=== PATIENT | male | born 1975 | race Caucasian/White ===

== ENCOUNTER 2016-11-26 19:01 | Emergency (ER) | payer MEDICAID | END 2016-11-26 19:55 | disposition home or self-care (01) | LOC: D.ER 19:01 | DX: L02.414 Cutaneous abscess of left upper limb (principal) ==

== ENCOUNTER 2017-07-11 12:11 | Emergency (ER) | payer MEDICAID | END 2017-07-11 13:48 | disposition home or self-care (01) | LOC: D.ER 12:11 | DX: J18.9 Pneumonia, unspecified organism (principal); J45.909 Unspecified asthma, uncomplicated; F17.200 Nicotine dependence, unspecified, uncomplicated ==

== ENCOUNTER 2017-09-12 05:06 | Emergency (ER) | payer MEDICAID ==
[2017-09-12 05:48] LABS: UDS - AMPHET POSITIVE QUAL (NEGATIVE); UDS - BARB NEGATIVE QUAL (NEGATIVE); UDS - BENZO NEGATIVE QUAL (NEGATIVE); UDS - COCAINE NEGATIVE QUAL (NEGATIVE); UDS - OPIATE NEGATIVE QUAL (NEGATIVE); UDS - PCP NEGATIVE QUAL (NEGATIVE); UDS - THC POSITIVE QUAL (NEGATIVE)
== END 2017-09-12 06:21 | disposition home or self-care (01) ==
LOC: D.ER 05:06
PROVIDERS: Family Medicine
DX: F15.10 Other stimulant abuse, uncomplicated (principal)

== ENCOUNTER 2018-02-03 00:43 | Inpatient (IN) | payer MEDICAID ==
[~2018-02-03] VITALS: Ht 185.4 cm; Wt 63.5 kg
--- NOTE | ~2018-02-03 | MORECARE ---
CASE MANAGEMENT DISCHARGE SUMMARY PATIENT: ELEONORA DE LEÓN UNIT: [id number] ADM DATE: 02/03/18 AGE: 42 : 71 SEX: M ROOM/BED: D.2222 AUTHOR: SASHADOC PHYSICIAN: REFERRING PHYSICIAN: DANNY ROWLAND MD DATE OF SERVICE: 02/07/18 Discharge Plan Patient Name: ELEONORA DE LEÓN Facility: [facility]:[place] : 1975 Planned Disposition: Home or Self Care Anticipated Discharge Date: 02/05/18 Discharge Date: 02/05/2018 Expected LOS: 2 Initial Reviewer: [email or web address] Initial Review Date: 02/03/2018 Generated: 02/07/18 5:35 pm Comments DCP- Discharge Planning Updated by [email or web address]: Doris Reed on 02/05/18 6:[address] LATE ENTRY 1730 PATIENT REPORTS HE IS GOING TO A PLACE ON [facility]. HE ALSO STATES HE HAS TRANSPORTATION. HIS TRANSPORTATION IS REPORTEDLY ON THE WAY. NO OTHER NEEDS VOICED. DCP- Discharge Planning Updated by [email or web address]: Karina Gutierrez on 02/03/18 1:[address] Patient Name: ELEONORA DE LEÓN Admission Status: ER Accout number: [id number] Admission Date: 02-03-2018 : 1975 Admission Diagnosis: Attending: DANNY ROWLAND Current LOS: 1 Anticipated DC Date: Planned Disposition: Primary Insurance: UNINSURED DISCOUNT PLAN Discharge Planning Comments: Met with patient to discuss discharge planning. He is laying on his side and does not open his eyes. I asked if he was currently homeless and he says yes. He states he was at [facility] for 2 weeks, states he will not go back. I provided him a list of homeless shelters. He states he does not have any family here. He states "I'm not in this right now." I informed him I will speak with him tomorrow and to let us know if we can help. CM will continue to follow and assist with discharge planning/needs. Office Auditor: Karina Gutierrez DCPIA - Discharge Planning Initial Assessment Updated by [email or web address]: Karina Gutierrez on 02/03/18 2:15 pm * Is the patient Alert and Oriented? Yes * PCP None * Pharmacy None * Preadmission Environment Homeless * ADLs Independent * Equipment None * List name and contact numbers for known caregivers / representatives who currently or will assist patient after discharge: None * Community resources currently utilized None Last DP export: 02/05/18 6:29 Patient Name: ELEONORA DE LEÓN Page [id number] at 1635 All edits/amendments must be made on the electronic document DICTATION DATE: 02/07/18 1634 HIGH LIFT OPERATOR: TERRIE 02/07/18 1634 RPT#: [id number] DC DATE:02/05/18 STATUS: DIS IN [facility] [address] [place] [address] END OF REPORT
--- NOTE | ~2018-02-03 | MORECARE ---
CASE MANAGEMENT DISCHARGE SUMMARY PATIENT: ELEONORA DE LEÓN UNIT: [id number] ADM DATE: 02/03/18 AGE: 42 : 71 SEX: M ROOM/BED: D.2222 AUTHOR: SASHADOC PHYSICIAN: REFERRING PHYSICIAN: DANNY ROWLAND MD DATE OF SERVICE: 02/05/18 Discharge Plan Patient Name: ELEONORA DE LEÓN Facility: [facility]:[place] : 1975 Planned Disposition: Home or Self Care Anticipated Discharge Date: 02/05/18 Discharge Date: 02/05/2018 Expected LOS: 2 Initial Reviewer: [email or web address] Initial Review Date: 02/03/2018 Generated: 02/05/18 8:29 pm Comments DCP- Discharge Planning Updated by [email or web address]: Doris Reed on 02/05/18 6:[address] LATE ENTRY 1730 PATIENT REPORTS HE IS GOING TO A PLACE ON [facility]. HE ALSO STATES HE HAS TRANSPORTATION. HIS TRANSPORTATION IS REPORTEDLY ON THE WAY. NO OTHER NEEDS VOICED. DCP- Discharge Planning Updated by [email or web address]: Karina Gutierrez on 02/03/18 1:[address] Patient Name: ELEONORA DE LEÓN Admission Status: ER Accout number: [id number] Admission Date: 02-03-2018 : 1975 Admission Diagnosis: Attending: DANNY ROWLAND Current LOS: 1 Anticipated DC Date: Planned Disposition: Primary Insurance: UNINSURED DISCOUNT PLAN Discharge Planning Comments: Met with patient to discuss discharge planning. He is laying on his side and does not open his eyes. I asked if he was currently homeless and he says yes. He states he was at [facility] for 2 weeks, states he will not go back. I provided him a list of homeless shelters. He states he does not have any family here. He states "I'm not in this right now." I informed him I will speak with him tomorrow and to let us know if we can help. CM will continue to follow and assist with discharge planning/needs. Sheriffs Detective: Karina Gutierrez DCPIA - Discharge Planning Initial Assessment Updated by [email or web address]: Karina Gutierrez on 02/03/18 2:15 pm * Is the patient Alert and Oriented? Yes * PCP None * Pharmacy None * Preadmission Environment Homeless * ADLs Independent * Equipment None * List name and contact numbers for known caregivers / representatives who currently or will assist patient after discharge: None * Community resources currently utilized None Last DP export: 02/05/18 6:23 Patient Name: ELEONORA DE LEÓN Page [id number] at 192 All edits/amendments must be made on the electronic document DICTATION DATE: 02/05/181928 PLANT PHYSIOLOGY TEACHER: TERRIE 02/05/181928 RPT#: [id number] DC DATE:02/05/18 STATUS: DIS IN [facility] [address] [place] [address] END OF REPORT
--- NOTE | ~2018-02-03 | MORECARE ---
CASE MANAGEMENT DISCHARGE SUMMARY PATIENT: ELEONORA DE LEÓN UNIT: [id number] ADM DATE: 02/03/18 AGE: 42 : 71 SEX: M ROOM/BED: D.2222 AUTHOR: SASHADOC PHYSICIAN: REFERRING PHYSICIAN: DANNY ROWLAND MD DATE OF SERVICE: 02/03/18 Discharge Plan Patient Name: ELEONORA DE LEÓN Facility: [facility]:[place] : 1975 Planned Disposition: Anticipated Discharge Date: Discharge Date: Expected LOS: Initial Reviewer: [email or web address] Initial Review Date: 02/03/2018 Generated: 02/03/18 3:23 pm Comments DCP- Discharge Planning Updated by [email or web address]: Karina Gutierrez on 02/03/18 1:[address] Patient Name: ELEONORA DE LEÓN Admission Status: ER Accout number: [id number] Admission Date: 02-03-2018 : 1975 Admission Diagnosis: Attending: DANNY ROWLAND Current LOS: 1 Anticipated DC Date: Planned Disposition: Primary Insurance: UNINSURED DISCOUNT PLAN Discharge Planning Comments: Met with patient to discuss discharge planning. He is laying on his side and does not open his eyes. I asked if he was currently homeless and he says yes. He states he was at [facility] for 2 weeks, states he will not go back. I provided him a list of homeless shelters. He states he does not have any family here. He states "I'm not in this right now." I informed him I will speak with him tomorrow and to let us know if we can help. CM will continue to follow and assist with discharge planning/needs. Chicken Hanger: Karina Gutierrez DCPIA - Discharge Planning Initial Assessment Updated by [email or web address]: Karina Gutierrez on 02/03/18 2:15 pm * Is the patient Alert and Oriented? Yes * PCP None * Pharmacy None * Preadmission Environment Homeless * ADLs Independent * Equipment None * List name and contact numbers for known caregivers / representatives who currently or will assist patient after discharge: None * Community resources currently utilized None Last DP export: 02/03/18 1:15 Patient Name: ELEONORA DE LEÓN Page 38021 at 1423 All edits/amendments must be made on the electronic document DICTATION DATE: 02/03/181421 DRUG REGULATORY AFFAIRS SPECIALIST: TERRIE 02/03/181421 RPT#: [id number] DC DATE: STATUS: ADM IN [facility] [address] [place] [address] END OF REPORT
--- NOTE | ~2018-02-03 | MORECARE ---
CASE MANAGEMENT DISCHARGE SUMMARY PATIENT: ELEONORA DE LEÓN UNIT: [id number] ADM DATE: 02/03/18 AGE: 42 : 71 SEX: M ROOM/BED: D.2222 AUTHOR: SASHADOC PHYSICIAN: REFERRING PHYSICIAN: DANNY ROWLAND MD DATE OF SERVICE: 02/05/18 Discharge Plan Patient Name: ELEONORA DE LEÓN Facility: [facility]:[place] : 1975 Planned Disposition: Home or Self Care Anticipated Discharge Date: 02/05/18 Discharge Date: 02/05/2018 Expected LOS: 2 Initial Reviewer: [email or web address] Initial Review Date: 02/03/2018 Generated: 02/05/18 8:23 pm Comments DCP- Discharge Planning Updated by [email or web address]: Karina Gutierrez on 02/03/18 1:[address] Patient Name: ELEONORA DE LEÓN Admission Status: ER Accout number: [id number] Admission Date: 02-03-2018 : 1975 Admission Diagnosis: Attending: DANNY ROWLAND Current LOS: 1 Anticipated DC Date: Planned Disposition: Primary Insurance: UNINSURED DISCOUNT PLAN Discharge Planning Comments: Met with patient to discuss discharge planning. He is laying on his side and does not open his eyes. I asked if he was currently homeless and he says yes. He states he was at [facility] for 2 weeks, states he will not go back. I provided him a list of homeless shelters. He states he does not have any family here. He states "I'm not in this right now." I informed him I will speak with him tomorrow and to let us know if we can help. CM will continue to follow and assist with discharge planning/needs. Temp Recruiter: Karina Gutierrez DCPIA - Discharge Planning Initial Assessment Updated by [email or web address]: Karina Gutierrez on 02/03/18 2:15 pm * Is the patient Alert and Oriented? Yes * PCP None * Pharmacy None * Preadmission Environment Homeless * ADLs Independent * Equipment None * List name and contact numbers for known caregivers / representatives who currently or will assist patient after discharge: None * Community resources currently utilized None Last DP export: 02/03/18 1:23 Patient Name: ELEONORA DE LEÓN Page 86944 at 1923 All edits/amendments must be made on the electronic document DICTATION DATE: 02/05/181921 COVER REMOVER: TERRIE 02/05/181921 RPT#: [id number] DC DATE:02/05/18 STATUS: DIS IN [facility] [address] [place] [address] END OF REPORT
--- NOTE | ~2018-02-03 | MORECARE ---
CASE MANAGEMENT DISCHARGE SUMMARY PATIENT: ELEONORA DE LEÓN UNIT: [id number] ADM DATE: 02/03/18 AGE: 42 : 71 SEX: M ROOM/BED: D.2222 AUTHOR: BETHNAIE BAEZ PHYSICIAN: REFERRING PHYSICIAN: DANNY ROWLAND MD DATE OF SERVICE: 02/03/18 Discharge Plan Patient Name: ELEONORA DE LEÓN [facility] [facility] 1975 Planned Disposition: Anticipated Discharge Date: Discharge Date: Expected LOS: Initial Reviewer: [email or web address] Initial Review Date: 02/03/2018 Generated: 02/03/18 3:15 pm Patient Name: ELEONORA DE LEÓN Page 16027 at 1415 All edits/amendments must be made on the electronic document DICTATION DATE: 02/03/18 1415 VEHICLE MAINTENANCE SUPERVISOR: TERRIE 02/03/18 1415 RPT#: [id number] DC DATE: STATUS: ADM IN [facility] [address] [place] [address] END OF REPORT
[2018-02-03 01:14] LABS: BASOPHILS 0.1 % (0-2); EOSINOPHILS 0.5 % (0-7); HEMATOCRIT 46.1 % (42.0-54.0); HEMOGLOBIN 15.4 g/dL (13.5-17.5); IMMATURE GRANULOCYTES 0.3 % (0-5); LYMPHOCYTES 14.7 % (15-50); MCH 30.9 pg (26.0-34.0); MCHC 33.4 g/dL (31.0-37.0); MCV 92.4 fL (80.0-100.0); MEAN PLATELET VOLUME 9.9 fL (7.4-10.4); MONOCYTES 5.9 % (2-11); NEUTROPHILS 78.5 % (40-80); PLATELET COUNT 336 10x3/uL (130-400); RBC 4.99 10x6/uL (4.20-6.10); RDW 14.1 % (11.5-14.5); WBC 14.9 10x3/uL (4.8-10.8)
[2018-02-03 01:31] LABS: ALBUMIN 3.5 g/dL (3.4-5.0); ALKALINE PHOSPHATASE 85 U/L (46-116); ALT (SGPT) 22 U/L (10-68); BILIRUBIN - TOTAL 0.58 mg/dL (0.2-1.3); CALC OSMOLALITY 281 mosm/kg (275-300); CALCIUM 8.8 mg/dL (8.5-10.1); CHLORIDE - SERUM 103 mmol/L (98-107); CREATININE - SERUM 0.9 mg/dL (0.6-1.3); GLUCOSE 91 mg/dL (74-106); POTASSIUM - SERUM 3.8 mmol/L (3.5-5.1); PROTEIN - SERUM 7.1 g/dL (6.4-8.2); SODIUM 141 mmol/L (136-145); UREA NITROGEN 16 mg/dL (7-18); eGFR NON AFRICAN AMERICAN > 90 mL/min (90-120)
[2018-02-03 01:33] LABS: AMYLASE - SERUM 153 U/L (25-115); LIPASE 1237 U/L (73-393)
[2018-02-03 01:34] LABS: TROPONIN-I < 0.017 ng/mL (0.000-0.060)
[2018-02-03 02:28] LABS: UDS - AMPHET NEGATIVE QUAL (NEGATIVE); UDS - BARB NEGATIVE QUAL (NEGATIVE); UDS - BENZO NEGATIVE QUAL (NEGATIVE); UDS - COCAINE NEGATIVE QUAL (NEGATIVE); UDS - OPIATE NEGATIVE QUAL (NEGATIVE); UDS - PCP NEGATIVE QUAL (NEGATIVE); UDS - THC NEGATIVE QUAL (NEGATIVE)
[2018-02-03 02:52] LABS: APPEARANCE CLEAR (CLEAR)
[2018-02-03 02:53] LABS: BILIRUBIN NEGATIVE (NEGATIVE); COLOR YELLOW (YELLOW); GLUCOSE NEGATIVE (NEGATIVE); KETONE NEGATIVE (NEGATIVE); NITRITE NEGATIVE (NEGATIVE); PROTEIN 2+ mg/dL (NEGATIVE); UROBILINOGEN NORMAL (NORMAL)
[2018-02-03 02:54] LABS: BACTERIA FEW /hpf (NONE SEEN); EPITHELIAL CELLS 0-5 /hpf (0-5); RED CELLS - URINE NONE SEEN /hpf (0-5); WHITE CELLS - URINE 0-5 /hpf (0-5)
[2018-02-03 05:19] VITALS: BP 162/102; BMI 18.5
[2018-02-03 09:45] VITALS: BP 165/105
[2018-02-03 13:03] VITALS: Ht 185.4 cm; Wt 63.5 kg
[2018-02-03 13:20] VITALS: BP 143/101
[2018-02-03 17:07] VITALS: BP 144/94
[2018-02-03 20:00] VITALS: BP 105/66
[2018-02-04 04:00] VITALS: BP 145/83
[2018-02-04 07:40] LABS: HEMOGLOBIN 13.5 g/dL (13.5-17.5); LYMPHOCYTES 17.1 % (15-50); MCHC 32.9 g/dL (31.0-37.0); MCV 91.1 fL (80.0-100.0); MEAN PLATELET VOLUME 9.7 fL (7.4-10.4); RDW 13.7 % (11.5-14.5); WBC 11.4 10x3/uL (4.8-10.8)
[2018-02-04 07:51] LABS: PLATELET COUNT 265 10x3/uL (130-400)
[2018-02-04 08:05] LABS: ALBUMIN 2.7 g/dL (3.4-5.0); ALKALINE PHOSPHATASE 68 U/L (46-116); BILIRUBIN - TOTAL 0.43 mg/dL (0.2-1.3); CALCIUM 8.3 mg/dL (8.5-10.1); CARBON DIOXIDE 28.4 mmol/L (21.0-32.0); CHLORIDE - SERUM 106 mmol/L (98-107); CREATININE - SERUM 0.8 mg/dL (0.6-1.3); GLUCOSE 94 mg/dL (74-106); LIPASE 81 U/L (73-393); POTASSIUM - SERUM 3.7 mmol/L (3.5-5.1); PROTEIN - SERUM 6.1 g/dL (6.4-8.2); SODIUM 140 mmol/L (136-145); eGFR NON AFRICAN AMERICAN > 90 mL/min (90-120)
[2018-02-04 08:06] LABS: ALT (SGPT) 16 U/L (10-68); AMYLASE - SERUM 59 U/L (25-115); CALC OSMOLALITY 275 mosm/kg (275-300); UREA NITROGEN 5 mg/dL (7-18)
[2018-02-04 08:54] VITALS: BP 146/102
[2018-02-04 12:37] VITALS: BP 153/97
[2018-02-04 17:22] VITALS: BP 137/95
[2018-02-04 20:00] VITALS: BP 135/81; BP 140/70
[2018-02-05 04:00] VITALS: BP 139/85
[2018-02-05 05:42] LABS: BASOPHILS 0.2 % (0-2); EOSINOPHILS 3.1 % (0-7); HEMATOCRIT 42.5 % (42.0-54.0); IMMATURE GRANULOCYTES 0.4 % (0-5); LYMPHOCYTES 20.8 % (15-50); MCH 30.4 pg (26.0-34.0); MCHC 32.9 g/dL (31.0-37.0); MCV 92.4 fL (80.0-100.0); MEAN PLATELET VOLUME 10.5 fL (7.4-10.4); NEUTROPHILS 66.5 % (40-80); PLATELET COUNT 303 10x3/uL (130-400); WBC 12.6 10x3/uL (4.8-10.8)
[2018-02-05 06:14] LABS: ALBUMIN 2.7 g/dL (3.4-5.0); ALKALINE PHOSPHATASE 68 U/L (46-116); ALT (SGPT) 13 U/L (10-68); BILIRUBIN - TOTAL 0.25 mg/dL (0.2-1.3); CALC OSMOLALITY 276 mosm/kg (275-300); CALCIUM 8.4 mg/dL (8.5-10.1); CARBON DIOXIDE 28.3 mmol/L (21.0-32.0); CHLORIDE - SERUM 105 mmol/L (98-107); CREATININE - SERUM 0.8 mg/dL (0.6-1.3); GLUCOSE 99 mg/dL (74-106); POTASSIUM - SERUM 3.8 mmol/L (3.5-5.1); PROTEIN - SERUM 6.3 g/dL (6.4-8.2); SODIUM 140 mmol/L (136-145); UREA NITROGEN 6 mg/dL (7-18); eGFR NON AFRICAN AMERICAN > 90 mL/min (90-120)
[2018-02-05 12:53] VITALS: BP 121/71
[2018-02-05 17:17] VITALS: BP 130/89
[2018-02-05] MEDS ORDERED: LEVAQUIN750 MG PO (17:44)
[2018-02-05] MEDS ORDERED: FLAGYL500 MG PO (17:45)
[2018-02-05] MEDS ORDERED: LISINOPRIL10 MG PO (17:51)
== END 2018-02-05 18:50 | disposition home or self-care (01) | DRG 391 ==
LOC: D.ER 00:43 → D.MS 04:20
PROVIDERS: Family Medicine; Internal Medicine Nephrology
DX: K52.9 Noninfective gastroenteritis and colitis, unspecified (principal); K85.90 Acute pancreatitis without necrosis or infection, unspecified; F17.203 Nicotine dependence unspecified, with withdrawal; I10 Essential (primary) hypertension; F19.10 Other psychoactive substance abuse, uncomplicated

== ENCOUNTER 2018-04-03 14:22 | Emergency (ER) | payer MEDICAID ==
[~2018-04-03] VITALS: Ht 185.4 cm; Wt 66.8 kg
[~2018-04-03 14:22] MED LIST: FLAGYL500 MG PO; LEVAQUIN750 MG PO; LISINOPRIL10 MG PO
[2018-04-03 14:29] VITALS: Ht 185.4 cm; Wt 66.8 kg
[2018-04-03] MEDS ORDERED: GYNE-LOTRIMIN-745 GM TP (15:29)
[2018-04-03] MEDS ORDERED: SELSUN BLUE 1%118 ML TOPICAL (15:29)
[2018-04-03 15:49] VITALS: BP 142/88
== END 2018-04-03 15:51 | disposition home or self-care (01) ==
LOC: D.ER 14:22
DX: B35.0 Tinea barbae and tinea capitis (principal); B35.8 Other dermatophytoses; F17.200 Nicotine dependence, unspecified, uncomplicated